=== PATIENT | male | born 1990 | race Caucasian/White ===

== ENCOUNTER 2022-08-16 16:22 | Emergency (ER) | payer SELFPAY ==
[2022-08-16 16:32] VITALS: BP 131/93; PULSE 87; RESP 16; TEMP 36.8; O2SAT 100; BMI 27.3
--- NOTE | 2022-08-16 16:40 | ECG_ITS ---
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 Measurements Intervals [place] Rate: 82 P: 60 MN: 137 QRS: 73 QRSD: 101 T: 43 QT: 361 QTc: 423 Interpretive Statements SINUS RHYTHM POSSIBLE LEFT VENTRICULAR HYPERTROPHY [VOLTAGE CRITERIA PLUS LAE OR QRS WIDENING] NONSPECIFIC ST & T-WAVE ABNORMALITY No previous ECG available for comparison Electronically Signed On 08-18-2022 7:44:34 FIRE AND EXPLOSION INVESTIGATOR by Gibran Seth M.D. [id number]
--- NOTE | 2022-08-16 16:41 | W.ED.ANXIETY ---
Documented by User: Mariangel Chapman MD 08/16/22 17:02 HPI - Anxiety General: Chief Complaint: Anxiety Stated Complaint: HYPERTENSION Time Seen by Provider: 08/16/22 16:32 History of Present Illness: 32-year-old male who comes in with dizziness. Patient states he was grilling when he started to feel lightheaded and feel like the room was spinning. He started to become short of breath. He states when EMS arrived, his blood pressure was elevated. He also complains of numbness on the back of his neck as well as his face. He denies extremity weakness or numbness. He states he did have blurry vision but that has improved. Dizzy spell now is coming and going but resolved upon arrival to the ER. He admits to smoking marijuana last night as well as drinking alcohol. He denies drinking energy drinks or other drug use. He does not have any medical problems or take any medications on a regular basis. Review of Systems General: Reports: 10 or more systems reviewed and unremarkable except in HPI and below PFSH ED PFSH: Social History (Updated 01/06/22 @ 10:36 by NASIM Vu) Smoking and tobacco status: current every day smoker Second hand smoke exposure: No Smoking risk assessment/counseling performed?: Yes Alcohol intake: current Desire information about alcohol rehabilitation?: No Counseling given: No Desire information about substance/drug rehabilitation?: No Counseling given: No Adopted: No Caregiver/support person: No Lives independently: Yes Household members: children and friend(s) Housing: Manufactured/Mobile home Marital status: / Number of children: 3 service: No Current occupational status: employed Pets and animals: Yes Pets & animals: dog(s) History of recent travel: No Current gender identity: Male Special lolita needs: No Physical Exam Const: COMMON NORMALS: no acute distress, patient oriented x3, healthy appearing, alert and well nourished HENMT: COMMON NORMALS: normocephalic and atraumatic HEAD & SCALP: normocephalic and atraumatic FACE & SINUS: sinuses nontender OTHER: Mucous membranes are moist. Eye: COMMON NORMALS: Equal, round and reactive pupils present and EOMs intact bilaterally PUPIL: Yes Equal, round and reactive pupils present OTHER: No nystagmus Neck/C-Spine: OTHER: Trachea midline Resp: COMMON NORMALS: normal respiratory effort, No retractions, No use of accessory muscles and clear to auscultation bilaterally AUSCULTATION: clear to auscultation bilaterally Cardio: COMMON NORMALS: regular rate and regular rhythm RATE: regular rate RHYTHM: regular rhythm GI: COMMON NORMALS: Normal to inspection, nondistended, normoactive bowel sounds present, Soft to palpation and non-tender PALPATION: Yes Soft to palpation Extremity: OTHER: No tenderness or edema. Neuro: COMMON NORMALS: patient oriented x3, CN's II-XII intact bilaterally, moves all extremities, no focal motor deficits and no sensory deficits noted SENSORIUM/ORIENTATION: Yes alert Course Vital Signs: Vital signs: Vital Signs Temperature 98.2 F 08/16/22 16:32 Pulse Rate 92 08/16/22 20:16 Respiratory Rate 18 08/16/22 20:16 Blood Pressure 147/95 08/16/22 20:16 Pulse Oximetry 99 08/16/22 20:16 Oxygen Delivery Me thod 08/16/22 19:00 MDM - Anxiety Medical Decision Making 32-year-old male who presents with dizziness which he describes as a lightheaded sensation as well as a sensation of spinning. He had associated blurry vision. He also complained of numbness on the back of his neck as well as his face. Per EMS, the patient was hyperventilating upon their arrival. He was hypertensive in route with a systolic blood pressure of 180. Upon arrival here, his blood pressure is 133/91. Symptoms have resolved at this time. Patient does admit to alcohol use as well as marijuana use last night. Suspect that the patient may be mildly dehydrated. Will check labs, EKG, urine drug screen. We will give the patient an IV fluid bolus. Frontal includes electrolyte abnormality, anxiety, hyperthyroidism, hypoglycemia, hypertension, palpitations, arrhythmia Lab Data 08/16/22 16:53 08/16/22 16:53 Radiology Impressions Chest X-Ray 08/16/22 17:00 IMPRESSION: No acute findings. Laboratory Results WBC 7.0 10^3/uL (4.0-10.0) 08/16/22 16:53 RBC 5.09 10^6/uL (4.1-5.3) 08/16/22 16:53 Hgb 15.6 g/dL (11.7-16.6) 08/16/22 16:53 Hct 44.8 % (42.0-52.0) 08/16/22 16:53 MCV 88.0 fl (80-94) 08/16/22 16:53 MCH 30.6 pg (28.0-34.0) 08/16/22 16:53 MCHC 34.8 g/dL (30.0-36.0) 08/16/22 16:53 RDW 11.9 % (12.1-15.1) L 08/16/22 16:53 Plt Count 343 10^3/cmm (130-400) 08/16/22 16:53 MPV 10.2 fL (7.4-10.4) 08/16/22 16:53 Neut % (Auto) 51.2 % 08/16/22 16:53 Lymph % (Auto) 34.7 % 08/16/22 16:53 [place] % (Auto) 10.2 % 08/16/22 16:53 Eos % (Auto) 2.9 % 08/16/22 16:53 Baso % (Auto) 0.9 % 08/16/22 16:53 Neut # (Auto) 3.58 10^3/uL (1.8-7.7) 08/16/22 16:53 Lymph # (Auto) 2.4 10^3/uL (0.8-4.8) 08/16/22 16:53 [place] # (Auto) 0.7 10^3/uL (0.2-0.9) 08/16/22 16:53 Eos # (Auto) 0.2 10^3/uL (0.0-0.8) 08/16/22 16:53 Baso # (Auto) 0.1 10^3/uL (0.0-0.1) 08/16/22 16:53 Nucleated RBC % (auto) 0 % 08/16/22 16:53 Nucleated RBCs # 0.0 /100WBC 08/16/22 16:53 Sodium 137 mmol/L (136-145) 08/16/22 16:53 Potassium 3.6 mmol/L (3.5-5.1) 08/16/22 16:53 Chloride 100 mmol/L (98-107) 08/16/22 16:53 Carbon Dioxide 23 mmol/L (22-29) 08/16/22 16:53 Anion Gap 17.6 (5-19) 08/16/22 16:53 BUN 13 mg/dL (6-20) 08/16/22 16:53 Creatinine 0.7 mg/dL (0.7-1.2) 08/16/22 16:53 GFR Calculation 132.4 mL/min (90-130) H 08/16/22 16:53 Glucose 106 mg/dL (65-115) 08/16/22 16:53 POC Glucose 124 mg/dL (70-110) H 08/16/22 17:14 Calculated Osmolality 285 mOsm/kg (285-295) 08/16/22 16:53 Calcium 10.1 mg/dL (8.5-10.5) 08/16/22 16:53 Magnesium 1.7 mg/dL (1.7-2.3) 08/16/22 16:53 Total Bilirubin 0.9 mg/dL (0.15-1.2) 08/16/22 16:53 AST 23 U/L (0-40) 08/16/22 16:53 ALT 23 U/L (0-41) 08/16/22 16:53 Alkaline Phosphatase 82 U/L (40-130) 08/16/22 16:53 Troponin T Baseline 7 ng/L (0-15) 08/16/22 16:53 Troponin T 120 Minute 6.84 ng/L (0-15) 08/16/22 18:41 Delta Troponin T -0.16 ABS# (0-10) L 08/16/22 18:41 Total Protein 7.4 g/dL (6.6-8.7) 08/16/22 16:53 Albumin 4.6 g/dL (3.5-5.2) 08/16/22 16:53 Globulin 2.8 g/dL (1.3-4.6) 08/16/22 16:53 TSH 0.96 uIU/mL (0.27-4.20) 08/16/22 16:53 Ethyl Alcohol < 10 mg/dL (0-10) 08/16/22 16:53 EKG Data EKG 1: I personally reviewed and interpreted this EKG as follows: EKG interpretation date: 08/16/22 EKG interpretation time: 17:02 Prior EKG tracings: not available for review Interpretation: Chest X-Ray 08/16/22 17:00 IMPRESSION: No acute findings. Normal sinus rhythm, Q waves in the inferior and lateral leads, biphasic T wave in lead V3. No acute ST segment elevation, no old EKG for comparison available. Other EKG comments: Chest X-Ray 08/16/22 17:00 IMPRESSION: No acute findings. Discharge Plan Discharge Patient Disposition: Home Clinical Impression: Hypertension, Dizziness, Acute hyperventilation syndrome Condition: Stable Prescriptions: New amlodipine 10 mg tablet 10 mg PO DAILY Qty: 30 0RF Discharge Orders: Discharge ED (Routine); Ordered 08/16/22 Ordered By: Gurpreet Bettencourt Patient Instructions: Hyperventilation (ED), Hypertension (ED), Dizziness (ED) Activity Restrictions/Additional Instructions: Check your blood pressure twice daily. If numbers remain above 150 systolic (the top number) take the medication you were prescribed. Case management will make you a follow-up appointment with her primary care physician. Outpatient follow-up will be needed. Return for concerning symptoms. Coding Level of Care Code ED Software Specialist for Chg Fwd Exam Detailed Documented by User: Gurpreet Bettencourt DO 08/18/22 12:48 HPI - Anxiety General: Chief Complaint: Anxiety Stated Complaint: HYPERTENSION Time Seen by Provider: 08/16/22 16:32 [facility] ED PFSH: Social History (Updated 01/06/22 @ 10:36 by NASIM Vu) Smoking and tobacco status: current every day smoker Second hand smoke exposure: No Smoking risk assessment/counseling performed?: Yes Alcohol intake: current Desire information about alcohol rehabilitation?: No Counseling given: No Desire information about substance/drug rehabilitation?: No Counseling given: No Adopted: No Caregiver/support person: No Lives independently: Yes Household members: children and friend(s) Housing: Manufactured/Mobile home Marital status: / Number of children: 3 service: No Current occupational status: employed Pets and animals: Yes Pets & animals: dog(s) History of recent travel: No Current gender identity: Male Special lolita needs: No Course Vital Signs: Vital signs: Vital Signs Temperature 98.2 F 08/16/22 16:32 Pulse Rate 92 08/16/22 20:16 Respiratory Rate 18 08/16/22 20:16 Blood Pressure 147/95 08/16/22 20:16 Pulse Oximetry 99 08/16/22 20:16 Oxygen Delivery Me thod 08/16/22 19:00 MDM - Anxiety Medical Decision Making 32-year-old male who presents with dizziness which he describes as a lightheaded sensation as well as a sensation of spinning. He had associated blurry vision. He also complained of numbness on the back of his neck as well as his face. Per EMS, the patient was hyperventilating upon their arrival. He was hypertensive in route with a systolic blood pressure of 180. Upon arrival here, his blood pressure is 133/91. Symptoms have resolved at this time. Patient does admit to alcohol use as well as marijuana use last night. Suspect that the patient may be mildly dehydrated. Will check labs, EKG, urine drug screen. We will give the patient an IV fluid bolus. Differential includes electrolyte abnormality, anxiety, hyperthyroidism, hypoglycemia, hypertension, palpitations, arrhythmia 32-year-old male checked out to me at shift change by the previous physician. This patient had lightheadedness and spinning, which are resolved now. He was significantly hypertensive on EMS arrival, he remained somewhat hypertensive with a blood pressure of 145/96. His laboratory is not remarkable including CBC BMP and 2 troponins that are normal. His alcohol level is less than 10. His EKG showed some Q waves in 2 3 and aVF as well as V6. He meets criteria for left ventricular hypertrophy as well. This may be related to undiagnosed hypertension. He will be instructed to take his pressure, and given treatment. Outpatient follow-up. Case management will make arrangements for this. Lab Data 08/16/22 16:53 08/16/22 16:53 Radiology Impressions Chest X-Ray 08/16/22 17:00 IMPRESSION: No acute findings. Laboratory Results WBC 7.0 10^3/uL (4.0-10.0) 08/16/22 16:53 RBC 5.09 10^6/uL (4.1-5.3) 08/16/22 16:53 Hgb 15.6 g/dL (11.7-16.6) 08/16/22 16:53 Hct 44.8 % (42.0-52.0) 08/16/22 16:53 MCV 88.0 fl (80-94) 08/16/22 16:53 MCH 30.6 pg (28.0-34.0) 08/16/22 16:53 MCHC 34.8 g/dL (30.0-36.0) 08/16/22 16:53 RDW 11.9 % (12.1-15.1) L 08/16/22 16:53 Plt Count 343 10^3/cmm (130-400) 08/16/22 16:53 MPV 10.2 fL (7.4-10.4) 08/16/22 16:53 Neut % (Auto) 51.2 % 08/16/22 16:53 Lymph % (Auto) 34.7 % 08/16/22 16:53 [place] % (Auto) 10.2 % 08/16/22 16:53 Eos % (Auto) 2.9 % 08/16/22 16:53 Baso % (Auto) 0.9 % 08/16/22 16:53 Neut # (Auto) 3.58 10^3/uL (1.8-7.7) 08/16/22 16:53 Lymph # (Auto) 2.4 10^3/uL (0.8-4.8) 08/16/22 16:53 [place] # (Auto) 0.7 10^3/uL (0.2-0.9) 08/16/22 16:53 Eos # (Auto) 0.2 10^3/uL (0.0-0.8) 08/16/22 16:53 Baso # (Auto) 0.1 10^3/uL (0.0-0.1) 08/16/22 16:53 Nucleated RBC % (auto) 0 % 08/16/22 16:53 Nucleated RBCs # 0.0 /100WBC 08/16/22 16:53 Sodium 137 mmol/L (136-145) 08/16/22 16:53 Potassium 3.6 mmol/L (3.5-5.1) 08/16/22 16:53 Chloride 100 mmol/L (98-107) 08/16/22 16:53 Carbon Dioxide 23 mmol/L (22-29) 08/16/22 16:53 Anion Gap 17.6 (5-19) 08/16/22 16:53 BUN 13 mg/dL (6-20) 08/16/22 16:53 Creatinine 0.7 mg/dL (0.7-1.2) 08/16/22 16:53 GFR Calculation 132.4 mL/min (90-130) H 08/16/22 16:53 Glucose 106 mg/dL (65-115) 08/16/22 16:53 POC Glucose 124 mg/dL (70-110) H 08/16/22 17:14 Calculated Osmolality 285 mOsm/kg (285-295) 08/16/22 16:53 Calcium 10.1 mg/dL (8.5-10.5) 08/16/22 16:53 Magnesium 1.7 mg/dL (1.7-2.3) 08/16/22 16:53 Total Bilirubin 0.9 mg/dL (0.15-1.2) 08/16/22 16:53 AST 23 U/L (0-40) 08/16/22 16:53 ALT 23 U/L (0-41) 08/16/22 16:53 Alkaline Phosphatase 82 U/L (40-130) 08/16/22 16:53 Troponin T Baseline 7 ng/L (0-15) 08/16/22 16:53 Troponin T 120 Minute 6.84 ng/L (0-15) 08/16/22 18:41 Delta Troponin T -0.16 ABS# (0-10) L 08/16/22 18:41 Total Protein 7.4 g/dL (6.6-8.7) 08/16/22 16:53 Albumin 4.6 g/dL (3.5-5.2) 08/16/22 16:53 Globulin 2.8 g/dL (1.3-4.6) 08/16/22 16:53 TSH 0.96 uIU/mL (0.27-4.20) 08/16/22 16:53 Ethyl Alcohol < 10 mg/dL (0-10) 08/16/22 16:53 EKG Data EKG 1: Interpretation: Chest X-Ray 08/16/22 17:00 IMPRESSION: No acute findings. Other EKG comments: Chest X-Ray 08/16/22 17:00 IMPRESSION: No acute findings. Discharge Plan Discharge Patient Disposition: Home Clinical Impression: Hypertension, Dizziness, Acute hyperventilation syndrome Condition: Stable Prescriptions: New amlodipine 10 mg tablet 10 mg PO DAILY Qty: 30 0RF Discharge Orders: Discharge ED (Routine); Ordered 08/16/22 Ordered By: Gurpreet Bettencourt Patient Instructions: Hyperventilation (ED), Hypertension (ED), Dizziness (ED) Activity Restrictions/Additional Instructions: Check your blood pressure twice daily. If numbers remain above 150 systolic (the top number) take the medication you were prescribed. Case management will make you a follow-up appointment with her primary care physician. Outpatient follow-up will be needed. Return for concerning symptoms. Coding Level of Care Code ED Software Specialist for Jose Armando Fwd Exam Detailed
--- NOTE | 2022-08-16 17:00 | XRR_ITS ---
PROCEDURE INFORMATION: Exam: XR Chest Exam date and time: 08/16/2022 5:08 PM Age: 32 years old Clinical indication: Pain; Chest pressure and other: High BP; Additional info: Chest pain TECHNIQUE: Imaging protocol: Radiologic exam of the chest. Views: 1 view. COMPARISON: No relevant prior studies available. FINDINGS: Lungs: Unremarkable. No consolidation. Pleural spaces: Unremarkable. No pleural effusion. No pneumothorax. Heart/Mediastinum: Unremarkable. No cardiomegaly. Bones/joints: Unremarkable. XR/XR chest 1V portable [id number] IMPRESSION: No acute findings.
[2022-08-16] MEDS: sodium chloride 0.9% 1,000 ML 999 ML IV (17:16)
[2022-08-16] MEDS: LORazepam 2 mg/mL INJ 1 mL 1 MG IVP (17:16)
[2022-08-16 17:18] LABS: Glucose Point of Care 124 mg/dL (70-110)
[2022-08-16 17:19] LABS: Basophils # 0.1 10^3/uL (0.0-0.1); Basophils % 0.9 %; Eosinophils # 0.2 10^3/uL (0.0-0.8); Eosinophils % 2.9 %; Hematocrit 44.8 % (42.0-52.0); Hemoglobin 15.6 g/dL (11.7-16.6); Lymphocytes # 2.4 10^3/uL (0.8-4.8); Lymphocytes % 34.7 %; Mean Corpuscular HGB Conc 34.8 g/dL (30.0-36.0); Mean Corpuscular Hemoglobin 30.6 pg (28.0-34.0); Mean Platelet Volume 10.2 fL (7.4-10.4); Monocytes # 0.7 10^3/uL (0.2-0.9); Monocytes % 10.2 %; Neutrophils # 3.58 10^3/uL (1.8-7.7); Neutrophils % 51.2 %; Nucleated Red Blood Cells % 0 %; Platelet Count 343 10^3/cmm (130-400); Red Blood Count 5.09 10^6/uL (4.1-5.3); Red Cell Distribution Width 11.9 % (12.1-15.1)
[2022-08-16 17:21] VITALS: BP 136/91; PULSE 78; RESP 20; O2SAT 98
[2022-08-16 17:26] LABS: Troponin(5th) Baseline 7 ng/L (0-15)
[2022-08-16 17:34] LABS: Alanine Aminotransferase 23 U/L (0-41); Albumin Level 4.6 g/dL (3.5-5.2); Alkaline Phosphatase 82 U/L (40-130); Anion Gap 17.6 (5-19); Aspartate Amino Transferase 23 U/L (0-40); Blood Urea Nitrogen 13 mg/dL (6-20); Calcium 10.1 mg/dL (8.5-10.5); Carbon Dioxide 23 mmol/L (22-29); Chloride 100 mmol/L (98-107); Creatinine Clr Calc Pharmacy 160.8506; Globulin 2.8 g/dL (1.3-4.6); Glomerular Filtration Rate 132.4 mL/min (90-130); Glucose 106 mg/dL (65-115); Magnesium 1.7 mg/dL (1.7-2.3); Osmolality Calculated 285 mOsm/kg (285-295); Potassium 3.6 mmol/L (3.5-5.1); Sodium 137 mmol/L (136-145); Thyroid Stimulating Hormone 0.96 uIU/mL (0.27-4.20); Total Bilirubin 0.9 mg/dL (0.15-1.2); Total Protein 7.4 g/dL (6.6-8.7)
[2022-08-16 17:43] LABS: Alcohol Level < 10 mg/dL (0-10)
[2022-08-16 19:00] VITALS: BP 135/94; PULSE 92; RESP 13; O2SAT 98
[2022-08-16 19:17] LABS: Troponin 5 2HR 6.84 ng/L (0-15)
--- NOTE | 2022-08-16 19:47 | ECG_ITS ---
[facility] Test Date: 2022-08-16 Pat Name: Quinn Castillo Department: Room: Gender: Male Marketing Project Manager: : 1990 Requested By: Mariangel Chapman Order Number: [id number] Denise MD: Gibran Seth M.D. Measurements Intervals [place] Rate: 71 P: 18 [place]: 137 QRS: 79 QRSD: 99 T: 52 QT: 370 QTc: 404 Interpretive Statements SINUS RHYTHM WITH SINUS ARRHYTHMIA MINIMAL VOLTAGE CRITERIA FOR LVH, CONSIDER NORMAL VARIANT [MEETS CRITERIA IN ONE OF: R(aVL), S(V1), R(V5), R(V5/V6)+S(V1)] NONSPECIFIC ST & T-WAVE ABNORMALITY Compared to ECG 08/16/2022 16:56:38 No significant changes Electronically Signed On 08-18-2022 7:49:57 CHIMNEY CONSTRUCTION SUPERVISOR by Gibran Seth M.D. [id number]
[2022-08-16 20:16] VITALS: BP 147/95; PULSE 92; RESP 18; O2SAT 99
[2022-08-16 20:34] LABS: Troponin 5 2HR Delta -0.16 ABS# (0-10)
--- NOTE | 2022-08-20 10:47 | DCPLANNER ---
account manager trainee had message to speak with patient about getting established with a primary care physician. account manager trainee called [phone], this is not patients phone number.
== END 2022-08-16 20:24 | disposition home or self-care (01) ==
PROVIDERS: Emergency Medicine; Emergency Provider Emergency Medicine
DX: R42 Dizziness and giddiness (principal); I10 Essential (primary) hypertension; F45.8 Other somatoform disorders; F17.210 Nicotine dependence, cigarettes, uncomplicated
CPT/HCPCS: 36416; 71045; 80053; 80307; 82962; 83735; 84443; 84484; 85025; 93005; 96361; 96374; 96375; 99285; J2060; J7030

== ENCOUNTER → 2025-04-06 10:09 | Outpatient (BNVA) | payer SELFPAY | PROVIDERS: PCP Nurse Practitioner Family; Visit Provider Nurse Practitioner Family | DX: I10 Essential (primary) hypertension (principal) | CPT/HCPCS: 80053; 80061; 84443; 85025 ==